=== PATIENT | female | born 1930 | race Caucasian/White ===

== ENCOUNTER 2018-09-23 10:01 | Emergency (ER) | payer MEDICARE, MEDICAID ==
[~2018-09-23] VITALS: Ht 157.5 cm; Wt 59.4 kg
[2018-09-23 10:15] VITALS: BP 133/55
--- NOTE | 2018-09-23 10:24 | ED Head Injury ---
General Chief Complaint: Trauma-Non Activation Stated Complaint: HEAD INJ,FALL Source: EMS Exam Limitations: clinical condition History of Present Illness Date Seen by Provider: Sep 23, 2018 Time Seen by Provider: 10:02 Initial Comments 88 yr old female found in her wheelchair at [place] with a scalp lesion/bleeding. She presumably fell from the chair and was able to get back in on her own. No other history obtainable. 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 Past Enpnhln-Osujcf-Dykmmd Hx Patient Social History Recent Foreign Travel: No Contact w/Someone Who Travel: No Past Medical History Neurological: Yes Stroke Physical Exam Vital Signs Vital Signs - First Documented Capillary Refill : <2 sec Height, Weight, BMI Height: '" Weight: lbs. oz. kg; BMI Method: General Appearance: WD/WN, mild distress HEENT: PERRL/EOMI, normal ENT inspection, TMs normal, pharynx normal Neck: non-tender, full range of motion, supple, normal inspection Cardiovascular: normal peripheral pulses, regular rate, rhythm, no edema, no gallop, no JVD, no murmur Respiratory: chest non-tender, lungs clear, no respiratory distress, no accessory muscle use, decreased breath sounds Gastrointestinal: normal bowel sounds, non tender, soft, no organomegaly, no pulsatile mass Back: normal inspection, no CVA tenderness, no vertebral tenderness Extremities: normal range of motion, non-tender, normal inspection, no pedal edema, no calf tenderness, normal capillary refill, pelvis stable Psychiatric: alert, disoriented x 3 Crainal Nerves: No facial asymmetry, No facial droop, No facial paresthesias, No facial weakness, No tongue deviation to R, No tongue deviation to L Motor/Sensory: no motor deficit, no sensory deficit Reflexes: 1+ Bicep (R), 1+ Bicep (L) Skin: normal color, warm/dry, other (bandage wrapped around head with small amount of BRB) Lymphatic: no adenopathy Procedures/Interventions Wound Location: Scalp Wound Length (cm): 5 Wound's Depth, Shape: sub Q Wound Explored: clean Betadine Prep?: Yes Wound Debrided: minimal Staple Repair: Stapler Skin Precise Number of Sutures: 8 Sterile Dressing Applied?: Yes Progress tolerated well Progress/Results/Core Measures Results/Orders My Orders Orders - MEMO MACK MD Ct Head/Cervical Spine Wo (09/23/18 10:13) Vital Signs/I&O 09/23/18 09/23/18 10:01 10:01 Temp 97.7 97.7 Pulse 86 86 Resp 20 20 B/P (MAP) 124/84 (97) 124/84 (97) Pulse Ox 97 97 O2 Delivery Room Air Room Air Progress Progress Note : Time: 10:24 Progress Note Will obtain CT head and c-spine then evaluate for source of scalp hemorrhage. Departure Impression Primary Impression: Occipital scalp laceration Qualified Codes: S01.01XA - Laceration without foreign body of scalp, initial encounter Additional Impression: Head injury Qualified Codes: S09.90XA - Unspecified injury of head, initial encounter Disposition: 62 DISC/XFER TO IRF Condition: Improved Departure-Patient Inst. Decision time for Depature: 11:22 Patient Instructions: Laceration Repair With Fabiola (DC), Minor Head Injury ( DC) Add. Discharge Instructions: All discharge instructions reviewed with patient and/or family. Voiced understanding. Staple removal in 7 days. Follow up with long-term physician in 1 week, sooner as needed. Apply local pressure as needed for any blood seepage. MEMO MACK MD Sep 23, 2018 10:24
[2018-09-23 10:45] VITALS: BP 121/68
--- NOTE | 2018-09-23 10:45 | NUR ---
RETURNED TO FROM CT
--- NOTE | 2018-09-23 11:00 | NUR ---
PERFORMED REPAIR OF 8 CM LACERATION TO POSTERIOR SCALP WITH 8 SKIN ABIMAEL. HEMOSTASIS ACHIEVED AND NO DSG APPLIED.
--- NOTE | 2018-09-23 11:08 | Diagnostic Imaging Report ---
PROCEDURE: CT head and CT cervical spine without contrast. TECHNIQUE: Multiple contiguous axial images were obtained through the brain and cervical spine without the use of intravenous contrast. Sagittal and coronal reformations through the cervical spine were then performed. INDICATION: Found on floor with hematoma of the head and neck. COMPARISON: No prior studies are available for comparison. FINDINGS: CT HEAD: The ventricles and sulci are prominent consistent with the patient's age. No sulcal effacement, midline shift or hemorrhage is detected. There is old small lacunar infarct in left thalamus. Cisterns are patent. Visualized paranasal sinuses are clear. IMPRESSION: Chronic and senescent changes. No acute intracranial process is detected. CT CERVICAL SPINE: Curvature of the cervical spine is normal. There is minimal retrolisthesis of C2 on C3 and C5 on C6. Minimal anterolisthesis of C4 on C5 is noted. There is multilevel degenerative disc and facet disease. Disc disease is greatest at C5-6 level. No fractures are identified. Prevertebral tissues are within normal limits. Odontoid is intact. IMPRESSION: Cervical spondylosis. No acute bony abnormality is detected. Dictated by: Dictated on workstation # [id number]
[2018-09-23 11:15] VITALS: BP 119/53
[2018-09-23 11:45] VITALS: BP 99/62
--- NOTE | 2018-09-23 11:56 | NUR ---
[facility] here to [facility]
[2018-09-23 11:58] VITALS: BP 114/60
== END 2018-09-23 11:58 ==
LOC: ER FS 10:05
DX: S09.90XA Unspecified injury of head, initial encounter (principal); S01.01XA Laceration without foreign body of scalp, initial encounter; Z86.73 Personal history of transient ischemic attack (TIA), and cerebral infarction without residual deficits; V00.811A Fall from moving wheelchair (powered), initial encounter
CPT/HCPCS: 12015; 70450; 72125

== ENCOUNTER 2018-09-30 06:52 | Emergency (ER) | payer MEDICARE, MEDICAID ==
[~2018-09-30] VITALS: Ht 152.4 cm; Wt 40.8 kg
[2018-09-30] VITALS (8 sets, daily range): BP systolic 106–139; BP diastolic 68–78
--- NOTE | 2018-09-30 07:30 | NUR ---
photo lab technician draws along with # 1 Blood Culture set.
--- NOTE | 2018-09-30 07:44 | NUR ---
ABG draw per RN to right radial on O2 at 2 L/m, direct pressure held for 5 minutes. Pt forms a small hematoma at site and pressure dsg taped also and held longer. No blood on skin or dsg.
[2018-09-30 07:49] LABS: ABG BASE EXCESS 4.6 MMOL/L (-2.5-2.5); ABG OXYGEN SATURATION 93 % (94-100); ABG PCO2 46 MMHG (35-45); ABG PH 7.42 (7.37-7.43); ABG PO2 67 MMHG (79-93)
[2018-09-30 07:50] LABS: HEMATOCRIT 35 % (35-52); HEMOGLOBIN 11.1 G/DL (11.5-16.0); MEAN CORPUSCULAR HEMOGLOBIN 31 PG (25-34); MEAN CORPUSCULAR HGB CONC 32 G/DL (32-36); MEAN CORPUSCULAR VOLUME 97 FL (80-99); MEAN PLATELET VOLUME 11.6 FL (7.4-10.4); NEUTROPHILS % (AUTO) 92 % (42-75); PLATELET COUNT 236 10^3/uL (130-400); RED CELL DISTRIBUTION WIDTH 14.6 % (10.0-14.5)
[2018-09-30 07:50] LABS: ALLENS TEST YES-POS; INSPIRED O2 2L; PATIENT TEMP 99.1; VENTILATOR NO
--- NOTE | 2018-09-30 07:50 | NUR ---
Placed #16 Fr indwelling owen with aseptic technique. Pt fairly able to cooperate as [address] owen. Note pt has a colostomy bag appearing clean without stool content.
[2018-09-30 07:51] LABS: BASOPHILS % (AUTO) 0 % (0-10); EOSINOPHILS % (AUTO) 0 % (0-10); LYMPHOCYTES # (AUTO) 0.5 X 10^3 (1.0-4.0); LYMPHOCYTES % (AUTO) 3 % (12-44); MONOCYTES # (AUTO) 0.8 X 10^3 (0.0-1.0); MONOCYTES % (AUTO) 5 % (0-12); NEUTROPHILS # (AUTO) 16.5 X 10^3 (1.8-7.8)
--- NOTE | 2018-09-30 07:57 | ED General ---
General Chief Complaint: Altered Mental Status Stated Complaint: LETHARGIC Nursing Triage Note: patient Seroquel increased form once a day to three times a day x 1 week ago, for last 3 days pt lethargic. this am pt spo2 84 percent on room air. pt has hx of COPD. 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 On EMS arrival, the patient is hypoxic with an O2 saturation in the mid 80s. It is unclear if the patient was on oxygen at the time her initial O2 saturation was obtained. Patient recently seen in the emergency department 1 week ago for fall and head injury. She has subsequently had an increase in her Seroquel dose. Patient is not currently on anticoagulation therapy. History is limited due the patient's altered mentation. Timing/Duration: 1-3 Hours Severity: Moderate Allergies and Home Medications Allergies Coded Allergies: No Known Drug Allergies (Unverified , 09/23/18) Patient Home Medication List Home Medication List Reviewed: Yes Review of Systems Review of Systems Constitutional: no symptoms reported (unable to obtain review of systems due to her mental status changes\\) Past Zjnkveo-Kiwcjh-Hxoncj Hx Patient Social History Recent Foreign Travel: No Contact w/Someone Who Travel: No Recent Infectious Disease Expo: No Past Medical History Surgeries: Yes (per medical records: hip replacement) Respiratory: Yes COPD Neurological: Yes Stroke Musculoskeletal: Yes (per medical records: dementia) Chronic Back Pain HEENT: Yes (per medical recordsd) Glaucoma Psychosocial: Yes (per medical records ) Depression Physical Exam Vital Signs Vital Signs - First Documented 09/30/18 06:57 Temp 98.0 Pulse 93 Resp 18 B/P (MAP) 128/71 (90) Pulse Ox 97 O2 Delivery Room Air Capillary Refill : Less Than 3 Seconds Height, Weight, BMI Height: 5'0" Weight: 90lbs. oz. 40.488244pf; BMI Method:Estimated General Appearance: Mild Distress, Thin Eyes: Bilateral Eye Normal Inspection, Bilateral Eye PERRL, Bilateral Eye EOMI , Bilateral Eye Abnormal EOM, Bilateral Eye Abnormal Pupil, Bilateral Eye Conjunctivae Pale, Bilateral Eye Lid Inflammation HEENT: PERRL/EOMI, Normal ENT Inspection, Pharynx Normal, Other (patient with old bruising over right forehead) Neck: Normal Inspection Respiratory: Chest Non Tender, Lungs Clear, Normal Breath Sounds, Decreased Breath Sounds, Rhonci Cardiovascular: Regular Rate, Rhythm, No Edema, No Gallop Gastrointestinal: Normal Bowel Sounds, Non Tender Extremity: Normal Capillary Refill, Normal Inspection Neurologic/Psychiatric: Disoriented, Other (unable to obtain neurologic exam due to patient's inability to cooperate) Skin: Normal Color Focused Exam Lactate Level 09/30/18 07:30: Lactic Acid Level 0.92 Lactic Acid Level Laboratory Tests Test 09/30/18 07:30 Lactic Acid Level 0.92 MMOL/L (0.50-2.00) Progress/Results/Core Measures Suspected Sepsis Recent Fever Within 48 Hours: No Infection Criteria Present: None New/Unexplained Altered Menta: No Sepsis Screen: No Definite Risk SIRS Temperature:98.0 Pulse: 93 Respiratory Rate: 18 Laboratory Tests 09/30/18 07:30: White Blood Count 18.0H Blood Pressure 128 /71 Mean: 90 09/30/18 07:30: Lactic Acid Level 0.92 Laboratory Tests 09/30/18 07:30: Creatinine 1.19, INR Comment 1.1, Platelet Count 236, Total Bilirubin 0.6 Results/Orders Lab Results Laboratory Tests Test 09/30/18 07:30 09/30/18 07:44 09/30/18 07:50 Range/Units White Blood Count 18.0 H 4.3-11.0 10^3/uL Red Blood Count 3.62 L 4.35-5.85 10^6/uL Hemoglobin 11.1 L 11.5-16.0 G/DL Hematocrit 35 35-52 % Mean Corpuscular Volume 97 80-99 FL Mean Corpuscular Hemoglobin 31 25-34 PG Mean Corpuscular Hemoglobin Concent 32 32-36 G/DL Red Cell Distribution Width 14.6 H 10.0-14.5 % Platelet Count 236 130-400 10^3/uL Mean Platelet Volume 11.6 H 7.4-10.4 FL Neutrophils (%) (Auto) 92 H 42-75 % Lymphocytes (%) (Auto) 3 L 12-44 % Monocytes (%) (Auto) 5 0-12 % Eosinophils (%) (Auto) 0 0-10 % Basophils (%) (Auto) 0 0-10 % Neutrophils # (Auto) 16.5 H 1.8-7.8 X 10^3 Lymphocytes # (Auto) 0.5 L 1.0-4.0 X 10^3 Monocytes # (Auto) 0.8 0.0-1.0 X 10^3 Eosinophils # (Auto) 0.0 0.0-0.3 10^3/uL Basophils # (Auto) 0.0 0.0-0.1 10^3/uL Neutrophils % (Manual) 84 % Lymphocytes % (Manual) 6 % Monocytes % (Manual) 2 % Eosinophils % (Manual) 0 % Basophils % (Manual) 0 % Band Neutrophils 8 % Blood Morphology Comment NORMAL Prothrombin Time 13.9 12.2-14.7 SEC INR Comment 1.1 0.8-1.4 Activated Partial Thromboplast Time 32 24-35 SEC Sodium Level 142 135-145 MMOL/L Potassium Level 4.6 3.6-5.0 MMOL/L Chloride Level 102 98-107 MMOL/L Carbon Dioxide Level 27 21-32 MMOL/L Anion Gap 13 5-14 MMOL/L Blood Urea Nitrogen 34 H 7-18 MG/DL Creatinine 1.19 0.60-1.30 MG/DL Estimat Glomerular Filtration Rate 43 BUN/Creatinine Ratio 29 Glucose Level 102 70-105 MG/DL Lactic Acid Level 0.92 0.50-2.00 MMOL/L Calcium Level 9.4 8.5-10.1 MG/DL Corrected Calcium 9.7 8.5-10.1 MG/DL Total Bilirubin 0.6 0.1-1.0 MG/DL Aspartate Amino Transf (AST/SGOT) 20 5-34 U/L Alanine Aminotransferase (ALT/SGPT) 12 0-55 U/L Alkaline Phosphatase 132 40-136 U/L Troponin T 26 H <=10 NG/L B-Type Natriuretic Peptide 4444.0 H <100.0 PG/ML Total Protein 7.0 6.4-8.2 GM/DL Albumin 3.6 3.2-4.5 GM/DL Blood Gas Puncture Site RT RAD Blood Gas Patient Temperature 99.1 Arterial Blood pH 7.42 7.37-7.43 Arterial Blood Partial Pressure CO2 46 H 35-45 MMHG Arterial Blood Partial Pressure O2 67 L 79-93 MMHG Arterial Blood HCO3 30 H 23-27 MMOL/L Arterial Blood Total CO2 31.0 21.0-31.0 MMOL/L Arterial Blood Oxygen Saturation 93 L 94-100 % Arterial Blood Base Excess 4.6 H -2.5-2.5 MMOL/L Connor Test YES-POS Blood Gas Ventilator Setting NO Blood Gas Inspired Oxygen 2L Urine Color YELLOW Urine Clarity CLEAR Urine pH 5.5 5-9 Urine Specific Cecil 1.010 L 1.016-1.022 Urine Protein NEGATIVE NEGATIVE Urine Glucose (UA) NEGATIVE NEGATIVE Urine Ketones NEGATIVE NEGATIVE Urine Nitrite NEGATIVE NEGATIVE Urine Bilirubin NEGATIVE NEGATIVE Urine Urobilinogen 0.2 NORMAL MG/DL Urine Leukocyte Esterase NEGATIVE NEGATIVE Urine RBC (Auto) NEGATIVE NEGATIVE Urine RBC NONE /HPF Urine WBC NONE /HPF Urine Crystals PRESENT H /LPF Urine Amorphous Sediment FEW BRITTANI URATES H /LPF Urine Bacteria NONE /HPF Urine Casts NONE /LPF Urine Mucus NEGATIVE /LPF Urine Culture Indicated NO My Orders Orders - AUTUMN LUCIO DO Cbc With Automated Diff (09/30/18 07:16) Comprehensive Metabolic Panel (09/30/18 07:16) BNP (09/30/18 07:16) Arterial Blood Gas (09/30/18 07:16) Lactic Acid Analyzer (09/30/18 07:16) Blood Culture (09/30/18 07:16) Ua Culture If Indicated (09/30/18 07:16) Catheter(Urinary) Insert & Ass 03,15 (09/30/18 07:16) Chest 1 View Ap/Pa Only (09/30/18 07:16) Ct Head Wo (09/30/18 07:16) Manual Differential (09/30/18 07:30) Ns Iv 1000 Ml (Sodium Chloride 0.9%) (09/30/18 08:00) Ceftriaxone For Iv Use (Rocephin For I (09/30/18 08:00) Blood Culture (09/30/18 08:19) Furosemide Injection (Lasix Injection) (09/30/18 08:30) Protime With Inr (09/30/18 08:33) Partial Thromboplastin Time (09/30/18 08:33) Ekg Tracing (09/30/18 08:45) Albuterol/Ipra Inhalation Soln (Duoneb I (09/30/18 09:00) Svn Small Volume Nebulizer (09/30/18 08:54) Cervical Collar: Apply (09/30/18 08:54) Ceftriaxone For Iv Use (Rocephin For I (09/30/18 08:02) Water (Sterile) For Injection (Sterile W (09/30/18 08:03) Ns Iv 1000 Ml (Sodium Chloride 0.9%) (09/30/18 08:03) Furosemide Injection (Lasix Injection) (09/30/18 08:51) Albuterol/Ipra Inhalation Soln (Duoneb I (09/30/18 08:55) Medications Given in ED Current Medications Medications Dose Ordered Sig/Naeem Route Start Time Stop Time Status Last Admin Dose Admin Albuterol/ Ipratropium 3 ml ONCE ONCE INH 09/30/18 09:00 09/30/18 09:01 DC 09/30/18 09:03 3 ML Ceftriaxone Sodium 1000 mg/ Sterile Water 10 ml @ 200 mls/hr ONCE ONCE IV 09/30/18 08:00 09/30/18 08:02 DC 09/30/18 08:50 200 MLS/HR Furosemide 40 mg ONCE ONCE IVP 09/30/18 08:30 09/30/18 08:31 DC 09/30/18 08:57 40 MG Vital Signs/I&O 09/30/18 06:57 Temp 98.0 Pulse 93 Resp 18 B/P (MAP) 128/71 (90) Pulse Ox 97 O2 Delivery Room Air Capillary Refill : Less Than 3 Seconds Blood Pressure Mean: 90 Diagnostic Imaging Diagonstic Imaging: Xray (R lobar infil, chf), CT (right subdural hematoma with min midline shift) Departure Impression Primary Impression: Subdural hematoma Additional Impressions: Lobar pneumonia, unspecified organism Congestive cardiac failure COPD exacerbation Disposition: XFER SHT-TRM HOSP Condition: Critical Transfer Time Spoke to Accepting Phy: 09:00 Transfer Progress Notes Patient accepted to [facility] by hospitalist accepting physician. Method of Transfer: EMS Departure-Patient Inst. Referrals: SELF,ANU VILLEGAS (PCP/Family) Primary Care Physician AUTUMN LUCIO DO Sep 30, 2018 07:57
[2018-09-30] MEDS ORDERED: NS IV 1000 ML 1,000 ML IV SCH (08:00)
[2018-09-30] MEDS ORDERED: cefTRIAXone FOR IV USE 1,000 MG in WATER (STERILE) FOR INJECTION 10 ML IV ONE (08:00)
[2018-09-30] MEDS ORDERED: cefTRIAXone 1,000 MG IV (ROCEPHIN) VIAL ONE (08:02)
[2018-09-30] MEDS ORDERED: NS IV 1000 ML 1,000 ML ONE (08:03)
[2018-09-30] MEDS ORDERED: WATER (STERILE) FOR INJECTION 10 ML ONE (08:03)
[2018-09-30 08:12] LABS: AMORPHOUS SEDIMENT,UR FEW AMOR URATES /LPF; BILIRUBIN,URINE NEGATIVE (NEGATIVE); CLARITY,URINE CLEAR; COLOR,URINE YELLOW; GLUCOSE, URINE (UA) NEGATIVE (NEGATIVE); KETONES,URINE NEGATIVE (NEGATIVE); LEUKOCYTE ESTERASE ,URINE NEGATIVE (NEGATIVE); NITRITE,URINE NEGATIVE (NEGATIVE); PH,URINE 5.5 (5-9); PROTEIN,URINE NEGATIVE (NEGATIVE); UROBILINOGEN,URINE 0.2 MG/DL (NORMAL)
[2018-09-30 08:13] LABS: CREATININE SERUM 1.19 MG/DL (0.60-1.30); POTASSIUM 4.6 MMOL/L (3.6-5.0)
[2018-09-30 08:14] LABS: BILIRUBIN,TOTAL 0.6 MG/DL (0.1-1.0); CALCIUM 9.4 MG/DL (8.5-10.1)
[2018-09-30 08:15] LABS: ALBUMIN 3.6 GM/DL (3.2-4.5)
--- NOTE | 2018-09-30 08:20 | NUR ---
Notified Lab to draw Blood Culture #2 as now requested by Dr Faust
--- NOTE | 2018-09-30 08:22 | NUR ---
NS fluids began wide open as ordered. Pt has bent arm slowing IV fluids.
[2018-09-30] MEDS ORDERED: FUROSEMIDE 40 MG/4 ML INJ (LASIX) IVP ONE (08:30)
--- NOTE | 2018-09-30 08:42 | Diagnostic Imaging Report ---
PROCEDURE: CT head without contrast. TECHNIQUE: Multiple contiguous axial images were obtained through the brain without the use of intravenous contrast. INDICATION: Fall striking the head one week ago and now with lethargy. FINDINGS: A hyperdense acute to subacute extra-axial hematoma along the right convexity has become apparent. There is no identifiable underlying calvarial fracture deformity. This is presumed within the subdural space although the thickest most posterior component of the collection does have a lentiform morphology. It measures a maximal transverse thickness of 16.4 mm. There is mild distortion of the contour of the right lateral ventricle with very slight right to left bowing and displacement of the falx by about 2 mm. There is CSF within the basilar cisterns and there are no findings of elevation of the intracranial pressures. No substantial sulcal effacement and there is no hydrocephalus. No herniation. No parenchymal subarachnoid or intraventricular blood products. The mastoid air cells are clear. The middle ear cavities unremarkable. There is no abnormality of the external auditory canals. The orbits and partially visualized paranasal sinuses normal. Again, no calvarial fracture deformity can be identified. IMPRESSION: 1. Right hemispheric extra-axial hematoma given the contour of its anterior and posterior margins is presumed in the subdural space measuring 16.4 mm maximal with slight 2-3 mm displacement of the midline structures right to left. No anay herniation, no hydrocephalus. No parenchymal or ventricular blood identified and no visualized fracture deformity or hemo-sinus. 2. We note a fair amount of chronic cerebrocortical atrophy which is likely serving to minimize the mass effect and displacement of the midline structures and again no findings of generalized elevated intracranial pressures were seen. Critical findings were relayed by phone to the emergency room physician. Dictated by: Dictated on workstation # [id number]
--- NOTE | 2018-09-30 08:46 | Diagnostic Imaging Report ---
INDICATION: Lethargy. FINDINGS: There are right lung consolidative changes, infiltrate and volume loss with ipsilateral rightward displacement of the cardiomediastinum and some elevation of the right hemidiaphragm. Disease is diffusely throughout the right lung but most notably in the middle and lower lobes. The left lung is compensatorily hyperexpanded but clear. The heart mildly enlarged. IMPRESSION: 1. Extensive infiltrates, volume loss and likely an element of at least small right-sided pleural fluid while pneumonia is presumed present. Postobstructive phenomena cannot be excluded and given the absence of prior, short-term followup versus correlative chest CT recommended. 2. Nonacute left chest. Dictated by: Dictated on workstation # [id number]
--- NOTE | 2018-09-30 08:50 | NUR ---
Rocephin 1 gm pushed over 5 minutes IVP. RN has assisted lab to draw blood culture.
[2018-09-30] MEDS ORDERED: FUROSEMIDE 40 MG/4 ML INJ (LASIX) ONE (08:51)
[2018-09-30] MEDS ORDERED: RT-ALBUTEROL/IPRATROPIUM 3 ML (DUONEB) VIAL ONE (08:55)
--- NOTE | 2018-09-30 08:57 | NUR ---
to room to request IV to KVO and Lasix to be given. Pt has had approx 200 ml of NS. Lasix 40 mg began on mini infuser.
[2018-09-30] MEDS ORDERED: RT-ALBUTEROL/IPRATROPIUM 3 ML (DUONEB) VIAL INH ONE ×2 (09:00→10:15)
--- NOTE | 2018-09-30 09:03 | NUR ---
RN began Duoneb via nebulizer. Pt can not assist RN r/t confusion? or normal mental status s/p old CVA. Blow by tx
--- NOTE | 2018-09-30 09:08 | NUR ---
R.T. tx completed. Pt has an occas cough that sounds moist, poor effort on pt's behalf. Pt sleeps frequently, shallow breathes. Awakens to verbal.
[2018-09-30 09:10] LABS: BAND NEUTROPHILS 8 %; BASOPHILS % (MANUAL) 0 %; EOSINOPHILS % (MANUAL) 0 %; LYMPHOCYTES % (MANUAL) 6 %; MONOCYTES % (MANUAL) 2 %; NEUTROPHILS % (MANUAL) 84 %
[2018-09-30 09:11] LABS: RBC MORPH NORMAL
--- NOTE | 2018-09-30 09:15 | NUR ---
[facility] and spoke with Quarter Backer Rahel Cristobal RN. They will call daughter in [place] to get her updated of ED visit and 's plans to transfer to [facility].
--- NOTE | 2018-09-30 09:25 | NUR ---
MANPREET performed EKG. EKG to
--- NOTE | 2018-09-30 09:30 | NUR ---
Pt placed into an adult C-collar by RN per [facility] request to Dr Faust.
[2018-09-30 09:49] LABS: INR 1.1 (0.8-1.4); PROTHROMBIN TIME PATIENT 13.9 SEC (12.2-14.7)
--- NOTE | 2018-09-30 09:50 | NUR ---
Call from [facility] transfer one call at 0946, transferred to ED to [facility] for report at 0950.
--- NOTE | 2018-09-30 10:00 | NUR ---
RN back into room again, pt getting legs thru rails and scooting. Pt repositioned. Pt calling out for her sister Pretty. Pt is oriented to name, confused otherwise.
[2018-09-30] MEDS ORDERED: LEVOFLOXACIN 750 MG/150 ML IV 150 ML IV ONE (10:15)
--- NOTE | 2018-09-30 10:15 | NUR ---
Back into pt room frequently while doing another pt discharge. Pt pulling on equipment and turning self sideways in bed. Legs thru rails. RN repositioned pt again.
--- NOTE | 2018-09-30 10:30 | NUR ---
[facility] arriving to ED. MANPREET devine to complete remainder of transfer paperwork with . Pt is being observed prn by EMS staff. IV remains intact infusing NS at KVO rate. Hernandez catheter in place patent draining edenilson urine cleared to diuresied
--- NOTE | 2018-09-30 10:44 | NUR ---
EMS departing to [facility] at this time. Pt has pulled the stat lock device to catheter away from left leg and re-applied with tape per EMS. Pt grabbing at any lines or tubing. Pajama's placed into belongings bag and sent w/ pt. Pt in hospital [facility]. Catheter being emptied of 800 ml urine, pt has diuresed urine to clear color. Report to EMS Forward Air Controller/Air Officer Rohit. Pt departed with NS infusing KVO 600 ml credit. Pt remains in her C-collar placed at 0930. See transfer form. Temp 98.1, BP- 106/70, P-110, RR-20, and SaO2-95% on O2 2 L/M. Pt daughter, Pretty Tuttle, has called earlier in beginning of transfer arranging and spoke to Dr Faust. Daughter is in agreement to ship to [facility] for appropriate work-up/eval and be given what options for tx.
--- NOTE | 2018-09-30 10:48 | NUR ---
Call to [facility] one call transfer, Michelle made aware pt is in route as emergent, Code Red to arrive promptly to ED there.
--- NOTE | 2018-09-30 11:00 | NUR ---
made aware of later orders not performed at transfer time as not known after transfer packet pulled. No Levaquin, no 2nd Duoneb.
== END 2018-09-30 10:44 | disposition short-term general hospital (02) ==
LOC: EDUNIT# 06:52 → ER FS 06:53
DX: S06.5X0A Traumatic subdural hemorrhage without loss of consciousness, initial encounter (principal); J18.1 Lobar pneumonia, unspecified organism; I50.9 Heart failure, unspecified; J44.1 Chronic obstructive pulmonary disease with (acute) exacerbation; F32.9 Major depressive disorder, single episode, unspecified; Z87.19 Personal history of other diseases of the digestive system; Z86.73 Personal history of transient ischemic attack (TIA), and cerebral infarction without residual deficits; W19.XXXA Unspecified fall, initial encounter
CPT/HCPCS: 36415; 51702; 70450; 71045; 80053; 81000; 82805; 83605; 83880; 84484; 85007; 85027; 85610; 85730; 87040; 93005; 96374; 96375; 99291